=== PATIENT | female | born 1970 | race Caucasian/White ===

== ENCOUNTER → 2024-06-30 | Outpatient (CLI) | payer BC, SELFPAY ==
[2024-06-30 11:36] LABS: Collection Type, Urine Clean Catch
[2024-06-30 12:54] LABS: Bacteria,Urine 2+; Bilirubin,Urine Negative (Negative); Blood,Urine Negative (Negative); Clarity,Urine Clear (Clear/Hazy); Color,Urine Lt-Yellow (Lt Yel-Yel); Glucose, Urine Negative (Negative); Ketones,Urine Negative (Negative); Leukocyte Esterase,Urine Positive (Negative); Nitrite,Urine Positive (Negative); PH,Urine 6.5 (5.0-7.0); Protein,Urine Negative (Neg - Trace); RBC,Urine 2 /hpf (0-3); Specific Gravity,Urine 1.008 (1.001-1.035); Squamous Epithelial Cell,Urine 2 /hpf (0-5); Urobilinogen,Urine Negative mg/dL (0.0-1.0); WBC,Urine 5 /hpf (0-5)
== END | disposition home or self-care (01) ==
LOC: SLDO 11:29
PROVIDERS: PCP Family Medicine; Referring Provider Family Medicine; Visit Provider Family Medicine
DX: N30.00 Acute cystitis without hematuria (principal)
CPT/HCPCS: 81001; 87077; 87086; 87186

== ENCOUNTER → 2024-10-28 | Outpatient (CLI) | payer BC, SELFPAY ==
[2024-10-28 15:17] LABS: Collection Type, Urine Clean Catch; Squamous Epithelial Cell,Urine 0 /hpf (0-5)
[2024-10-28 16:41] LABS: Bilirubin,Urine Negative (Negative); Blood,Urine Negative (Negative); Clarity,Urine Clear (Clear/Hazy); Color,Urine Lt-Yellow (Lt Yel-Yel); Glucose, Urine Negative (Negative); Ketones,Urine Negative (Negative); Leukocyte Esterase,Urine Negative (Negative); Nitrite,Urine Negative (Negative); PH,Urine 7.5 (5.0-7.0); Protein,Urine Negative (Neg - Trace); RBC,Urine < 1 /hpf (0-3); Urobilinogen,Urine Negative mg/dL (0.0-1.0); WBC,Urine 1 /hpf (0-5)
== END | disposition home or self-care (01) ==
LOC: SLDO 14:33
PROVIDERS: PCP Family Medicine; Referring Provider Family Medicine; Visit Provider Family Medicine
DX: N30.00 Acute cystitis without hematuria (principal)
CPT/HCPCS: 81001; 87077; 87086; 87186

== ENCOUNTER 2024-12-06 13:02 | Emergency (ER) | payer BC, SELFPAY ==
[2024-12-06 13:04] VITALS: BMI 23.0
[2024-12-06 13:23] VITALS: BP 133/86; PULSE 71; RESP 18; TEMP 36.4; O2SAT 99
--- NOTE | 2024-12-06 13:31 | PD.EDLOWEX ---
Lower Extremity Injury RME/HPI General Chief Complaint: Extremity Injury, Lower Stated Complaint: FELL & HURT L) KNEE, UNABLE TO BEND, SHARP PAIN Time Seen by Provider: 12/06/24 13:25 Arrival date/time: 12/06/24 13:02 54-year-old female presents emergency department today since she had a trip and fall approximately 2 weeks ago injuring her left knee patient reports since then she has had swelling and inability to completely move the knee Limitations: no limitations Related Data Home Medications ?Medication ?Instructions ?Recorded ?Confirmed fluticasone propionate 50 1 spray intranasal QDAY 12/21/19 12/22/19 mcg/actuation nasal spray,suspension (Flonase Allergy Relief) ibuprofen 800 mg tablet 800 mg PO Q6H PRN stress headache 12/21/19 12/22/19 Held on 12/22/19. Instructions: Resume on 12/24/19. multivitamin 1 tab PO QAM 12/21/19 12/22/19 vitamin B complex (B-Complex 1 tab PO QDAY 12/21/19 12/22/19 tablet) Allergies Allergy/AdvReac Type Severity Reaction Status Date / Time nitrofurantoin (From Allergy Mild Rash Verified 12/06/24 13:06 Macrobid) Review of Systems Review of Systems Systems Reviewed: All systems reviewed, normal except as documented Constitutional Constitutional: Reports system reviewed and no additional complaints, except as documented, Denies fever(s) and Denies headache(s) Eyes Eyes: Reports system reviewed and no additional complaints, except as documented and Denies blurry vision ENT Ears, Nose, Mouth, and Throat: Reports system reviewed and no additional complaints, except as documented, Denies headache(s), Denies nasal congestion and Denies nasal discharge Cardiovascular Cardiovascular: Reports system reviewed and no additional complaints, except as documented, Denies chest pain and Denies dyspnea Respiratory Respiratory: Reports system reviewed and no additional complaints, except as documented, Denies chest congestion, Denies cough and Denies dyspnea Gastrointestinal Gastrointestinal: Reports system reviewed and no additional complaints, except as documented and Denies abdominal pain Musculoskeletal Musculoskeletal: Reports system reviewed and no additional complaints, except as documented, Reports arthralgias, Denies deformity, Reports joint swelling (Pain swelling left knee), Denies numbness, Reports stiffness, Denies tingling and Reports other (Injury left knee approximately 2 weeks ago) Integumentary/Breasts Skin/Breast: Reports system reviewed and no additional complaints, except as documented and Denies rash Neurologic Neurologic: Reports system reviewed and no additional complaints, except as documented, Reports as per HPI, Denies headache(s), Denies numbness and Denies tingling Past Medical History Past Medical History NEUROLOGIC: Positive Neurological Disorders and Migraine CARDIAC: Positive Cardiac Disorders (tachycardia); Negative Congestive Heart Failure RESPIRATORY: Negative Chronic Obstructive Pulmonary Disease (COPD) GASTROINTESTINAL: Negative Gastrointestinal Disorders or Hepatitis GENITOURINARY: Negative Genitourinary Disorders or Renal Disease REPRODUCTIVE: Negative Previous Pregnancies (hysterectomy) MUSCULOSKELETAL: Positive Musculoskeletal Disorders (left shoulder rotator repair) ENDOCRINE: Positive Endocrine Disorders and Hyperthyroidism; Negative Diabetes Mellitus Type 1 or Diabetes Mellitus Type 2 HEMATOLOGIC: Negative Blood Disorders OTHER HISTORY: Positive Chicken Pox; Negative Blood Transfusions, Blood Transfusion Reaction, Anesthesia Reactions, MRSA, VRSA, Vancomycin-Resistant Enterococci, Measles, Mumps or Cancer Surgical History SURGICAL: Positive Hysterectomy and Section Social History SMOKING STATUS: Never smoker ED Exam General Limitations: Present no limitations General appearance: Present alert and in no apparent distress Head Head exam: Present atraumatic Eye Eye exam: Present normal appearance, PERRL and EOMI ENT ENT exam: Present normal exam, normal oropharynx and mucous membranes moist Neck Neck exam: Present normal inspection, full ROM and trachea midline Chest Chest inspection: Present normal inspection and symmetric chest wall rise Respiratory Respiratory exam: Present normal lung sounds bilaterally Cardiovascular Cardiovascular exam: Present regular rate, normal rhythm and normal heart sounds Abdominal Exam Abdominal exam: Present soft and normal bowel sounds Extremities Exam Extremities exam: Present tenderness, normal capillary refill and other (Injury left knee approximately 2 weeks ago) Back Exam Back exam: Present normal inspection and full ROM Neurological Exam Neurological exam: Present alert, oriented X3 and CN II-XII intact Psychiatric Psychiatric exam: Present normal affect and normal mood Skin Skin exam: Present warm, dry, intact and normal color Course Quality Measures none Orders Category Date Time Status simeon wrap [Splint / Immobilizer] STAT Care 12/06/24 13:34 Completed Vital Signs Vital signs: Vital Signs Temperature 97.5 F 12/06/24 13:23 Pulse Rate 71 12/06/24 13:23 Respiratory Rate 18 12/06/24 13:23 Blood Pressure 133/86 H 12/06/24 13:23 Pulse Oximetry (%) 99 12/06/24 13:23 Oxygen Delivery Method Room Air 12/06/24 13:23 O2 saturation 99% on room air with normal limits Extremity Injury, Lower MDM Narrative MDM Narrative:: 54-year-old female presents emergency department today since she had a trip and fall approximately 2 weeks ago injuring her left knee patient reports since then she has had swelling and inability to completely move the knee Based on exam I suspect patient has ligamentous tear I have no ability to get MRI today I instructed the patient to return tomorrow for MRI for further evaluation Patient states she will return tomorrow for MRI At time of discharge patient is no distress Patient data External records reviewed:: [facility] previous records Clinical information provided by:: patient Social determinants that could affect healthcare access:: none Patient has the following chronic illnesses:: None How is presenting disease/condition affected by chronic disease/condition?: no chronic disease Evaluation data The following diagnostics were reviewed and interpreted by me:: radiology exam(s) Lab and/or radiology exams considered but not ordered:: Radiology obtain Interpretation Summary: Reviewed by me Medications / Prescriptions Medications or Prescriptions considered but not ordered:: Given Medication administrations:: Given Consultations Consultation(s) initiated? (list below): No Diagnosis Extremity Injury, Lower Differential Diagnosis: acute internal derangement of knee and other (Knee sprain, knee fracture) Most likely diagnosis given after review of the tests above:: Knee sprain Admission Indicated Admission indicated?: not indicated Admission Request Was there a request for admission?: No Disposition Plan Disposition Plan: Discharge Discharge Attestation Discharge Attestation: The patient and all family members were given an opportunity to ask questions and understood the discharge instructions. Discharge instructions specifically effects, indications for sooner follow up or return to the emergency department, and the expected course of current diagnosis. Patient condition: Stable Discharge Plan Plan Patient Disposition: HOME (Self Care) Discharge Disposition comment: Stable Prescriptions/Referrals Prescriptions/Med Rec: No Action multivitamin Tablet 1 tab PO QAM ibuprofen 800 mg Tablet 800 mg PO Q6H PRN (Reason: stress headache ) vitamin B complex [B-Complex] Tablet 1 tab PO QDAY fluticasone propionate [Flonase Allergy Relief] 50 mcg/actuation [place],Suspension 1 spray INTRANASAL QDAY Problem List Clinical Impression: Knee pain, left Patient/Caregiver Discharge Instructions Education Materials: ED Arthralgia Additional Instructions: Please follow up with your primary care doctor in the next 24-48hrs for any worsening symptoms return here immediately Print Language: Irish Stand Alone Forms: Ania Award Info., Patient Portal Info Letter PA/FINE ARTS TEACHER Supervising Physician PA/FINE ARTS TEACHER Supervising Physician: Dr robbins
== END 2024-12-06 13:34 | disposition home or self-care (01) ==
PROVIDERS: Emergency Provider Family Medicine; PCP Family Medicine
DX: S89.92XA Unspecified injury of left lower leg, initial encounter (principal); W01.0XXA Fall on same level from slipping, tripping and stumbling without subsequent striking against object, initial encounter
CPT/HCPCS: 99281

== ENCOUNTER 2024-12-08 17:20 | Emergency (ER) | payer BC, SELFPAY ==
[2024-12-08 17:21] VITALS: BMI 23.0
[2024-12-08 18:22] VITALS: BP 146/90; PULSE 73; RESP 18; TEMP 36.8; O2SAT 99
--- NOTE | 2024-12-08 18:31 | XR_ITS ---
Examination: Knee, left , 3 views Technique: Knee AP, lateral, oblique 3 views Date and time of exam: December 08, 2024, 1835 hours INDICATIONS: Patient fell 2 weeks ago with injury to knee, knee pain FINDINGS: No fracture or dislocation No foreign body Small knee effusion IMPRESSION: No fracture or dislocation
--- NOTE | 2024-12-08 18:35 | PD.EDLOWEX ---
Lower Extremity Injury RME/HPI General Chief Complaint: Extremity Injury, Lower Stated Complaint: L) KNEE PAIN Time Seen by Provider: 12/08/24 18:31 Arrival date/time: 12/08/24 17:20 54F with history of hypothyroidism presents to ED with 2 weeks of L knee pain after slipping while gardening. Patient's insurance still hasn't approved XR or MRI. Patient was told to return for MRI. Patient wants to to do XR today for insurance purposes. She will return tomorrow in AM. Limitations: no limitations Related Data Home Medications ?Medication ?Instructions ?Recorded ?Confirmed fluticasone propionate 50 1 spray intranasal QDAY 12/21/19 12/22/19 mcg/actuation nasal spray,suspension (Flonase Allergy Relief) ibuprofen 800 mg tablet 800 mg PO Q6H PRN stress headache 12/21/19 12/22/19 Held on 12/22/19. Instructions: Resume on 12/24/19. multivitamin 1 tab PO QAM 12/21/19 12/22/19 vitamin B complex (B-Complex 1 tab PO QDAY 12/21/19 12/22/19 tablet) Allergies Allergy/AdvReac Type Severity Reaction Status Date / Time nitrofurantoin (From Allergy Mild Rash Verified 12/08/24 17:23 Macrobid) Review of Systems Review of Systems Systems Reviewed: All systems reviewed, normal except as documented Constitutional Constitutional: Reports system reviewed and no additional complaints, except as documented, Denies fever(s) and Denies headache(s) ENT Ears, Nose, Mouth, and Throat: Denies disequilibrium and Denies headache(s) Cardiovascular Cardiovascular: Reports system reviewed and no additional complaints, except as documented, Denies chest pain and Denies dyspnea Respiratory Respiratory: Reports system reviewed and no additional complaints, except as documented, Denies cough and Denies dyspnea Gastrointestinal Gastrointestinal: Reports system reviewed and no additional complaints, except as documented, Denies abdominal pain, Denies nausea and Denies vomiting Musculoskeletal Musculoskeletal: Reports as per HPI and Reports arthralgias Neurologic Neurologic: Reports system reviewed and no additional complaints, except as documented, Denies confusion, Denies disequilibrium and Denies headache(s) Psychiatric Psychiatric: Denies confusion Past Medical History Past Medical History NEUROLOGIC: Positive Neurological Disorders and Migraine CARDIAC: Positive Cardiac Disorders (tachycardia); Negative Congestive Heart Failure RESPIRATORY: Negative Chronic Obstructive Pulmonary Disease (COPD) GASTROINTESTINAL: Negative Gastrointestinal Disorders or Hepatitis GENITOURINARY: Negative Genitourinary Disorders or Renal Disease REPRODUCTIVE: Negative Previous Pregnancies (hysterectomy) MUSCULOSKELETAL: Positive Musculoskeletal Disorders (left shoulder rotator repair) ENDOCRINE: Positive Endocrine Disorders and Hyperthyroidism; Negative Diabetes Mellitus Type 1 or Diabetes Mellitus Type 2 HEMATOLOGIC: Negative Blood Disorders OTHER HISTORY: Positive Chicken Pox; Negative Blood Transfusions, Blood Transfusion Reaction, Anesthesia Reactions, MRSA, VRSA, Vancomycin-Resistant Enterococci, Measles, Mumps or Cancer Surgical History SURGICAL: Positive Hysterectomy and Section Social History SMOKING STATUS: Never smoker ED Exam General Limitations: Present no limitations General appearance: Present alert and in no apparent distress Head Head exam: Present atraumatic Eye Eye exam: Present normal appearance, PERRL and EOMI ENT ENT exam: Present normal exam, normal oropharynx and mucous membranes moist Neck Neck exam: Present normal inspection, full ROM and trachea midline Chest Chest inspection: Present normal inspection and symmetric chest wall rise Respiratory Respiratory exam: Present normal lung sounds bilaterally Cardiovascular Cardiovascular exam: Present regular rate, normal rhythm and normal heart sounds Abdominal Exam Abdominal exam: Present soft and normal bowel sounds Expanded Lower Extremity Exam Knee exam: Absent full ROM Back Exam Back exam: Present normal inspection and full ROM Neurological Exam Neurological exam: Present alert, oriented X3 and CN II-XII intact Psychiatric Psychiatric exam: Present normal affect and normal mood Skin Skin exam: Present warm, dry, intact and normal color Course Quality Measures none Orders Category Date Time Status XR knee LT 3V Stat Exams 12/08/24 18:31 Completed Vital Signs Vital signs: Vital Signs Temperature 98.3 F 12/08/24 18:22 Pulse Rate 73 12/08/24 18:22 Respiratory Rate 18 12/08/24 18:22 Blood Pressure 146/90 H 12/08/24 18:22 Pulse Oximetry (%) 99 12/08/24 18:22 Oxygen Delivery Method Room Air 12/08/24 18:22 O2 at 99% on RA and WNLs Extremity Injury, Lower MDM Narrative MDM Narrative:: 54F with history of hypothyroidism presents to ED with 2 weeks of L knee pain after slipping while gardening. Patient's insurance still hasn't approved XR or MRI. Patient was told to return for MRI. Patient wants to to do XR today for insurance purposes. She will return tomorrow in AM. Physical exam reveals limited L knee ROM. Gait mostly intact. Patient is afebrile, calm, and alert. XR unremarkable. Counseled to return tomorrow at 9 AM. Patient data External records reviewed:: [facility] previous records Clinical information provided by:: patient Social determinants that could affect healthcare access:: none Patient has the following chronic illnesses:: hypothyroidism How is presenting disease/condition affected by chronic disease/condition?: uneffected by Evaluation data The following diagnostics were reviewed and interpreted by me:: radiology exam(s) Lab and/or radiology exams considered but not ordered:: ordered Interpretation Summary: above Medications / Prescriptions Medications or Prescriptions considered but not ordered:: not ordered Medication administrations:: n/a Consultations Consultation(s) initiated? (list below): No Diagnosis Extremity Injury, Lower Differential Diagnosis: ankle sprain and strain, acute internal derangement of knee, puncture wound of foot, fracture of toe and ankle fracture Most likely diagnosis given after review of the tests above:: acute internal derangement of knee Admission Indicated Admission indicated?: not indicated Admission Request Was there a request for admission?: No Disposition Plan Disposition Plan: Discharge Discharge Attestation Discharge Attestation: The patient and all family members were given an opportunity to ask questions and understood the discharge instructions. Discharge instructions specifically effects, indications for sooner follow up or return to the emergency department, and the expected course of current diagnosis. Patient condition: Stable Discharge Plan Plan Patient Disposition: HOME (Self Care) Discharge Disposition comment: Stable Prescriptions/Referrals Prescriptions/Med Rec: No Action multivitamin Tablet 1 tab PO QAM ibuprofen 800 mg Tablet 800 mg PO Q6H PRN (Reason: stress headache ) vitamin B complex [B-Complex] Tablet 1 tab PO QDAY fluticasone propionate [Flonase Allergy Relief] 50 mcg/actuation [place],Suspension 1 spray INTRANASAL QDAY Referrals: Peewee Yuan [Primary Care Provider] - In 1 week Problem List Clinical Impression: Acute internal derangement of knee Patient/Caregiver Discharge Instructions Education Materials: How Your Knee Works Additional Instructions: Please follow-up with PCP within 24-48 hours and return immediately if symptoms worsen. Come back tomorrow at 9 AM for MRI. Print Language: Macanese Stand Alone Forms: Work/School Release, Patient Portal Info Letter PA/WHEELCHAIR DRIVER Supervising Physician PA/WHEELCHAIR DRIVER Supervising Physician: Dr. Lopez
== END 2024-12-08 19:26 | disposition home or self-care (01) ==
PROVIDERS: Emergency Provider Emergency Medicine; PCP Family Medicine
DX: M23.92 Unspecified internal derangement of left knee (principal); E03.9 Hypothyroidism, unspecified
CPT/HCPCS: 73562; 99283

== ENCOUNTER 2024-12-09 12:41 | Emergency (ER) | payer BC, SELFPAY ==
--- NOTE | 2024-12-09 | XR_ITS ---
Exam: MRI knee without contrast, left Date and time of exam: December 09, 2024 1440 hours INDICATIONS: Patient fell 3 weeks ago with injury to knee, knee pain Technique: Multiple axial, coronal, and sagittal sections on the knee have been obtained. T2-Weighted sagittal, fat-suppressed images, TR 3,500, TE 62, T2 weighted coronal fat-saturated images, TR 3,500, TE 62 Proton density sagittal sections, TR 1800, TE 31. T-1 weighted coronal images, TR 524, TE 13.0 Findings: Medial meniscus anterior horn intact. Medial meniscus, body intact. Posterior horn medial meniscus is intact. Lateral meniscus anterior horn is intact Lateral meniscus, body is intact Posterior horn lateral meniscus is intact Anterior cruciate ligament high-grade sprain Posterior cruciate ligament appears intact. Knee effusion is large. Quadriceps and patellar tendons appear intact. There is no evidence of tendinosis. Inflammatory change or fracture of Hoffa's fat pad is not seen. Medial patellar facet demonstrates mild thinning. Lateral patellar facet cartilage demonstrates mild thinning. Trochlear cartilage demonstrates mild thinning. Marrow signal adequate. Medial collateral ligament appears intact. No meniscocapsular separation is seen. Illiotibial band and fibular collateral ligament are intact. Biceps femoris tendons appear intact. Medial femoral condylar articular cartilage demonstrates moderate thinning. Lateral femoral condylar articular cartilage demonstratesmoderate thinning. Tibial plateau cartilage demonstrates moderate thinning. Impression: High-grade sprain anterior cruciate ligament
[2024-12-09 12:41] VITALS: BMI 23.0
--- NOTE | 2024-12-09 12:52 | PD.EDEXREM ---
ED Extremity Problem RME/HPI General Chief complaint: Extremity Problem,Nontraumatic Stated complaint: LEFT KNEE PAIN Time Seen by Provider: 12/09/24 12:41 Arrival date/time: 12/09/24 12:41 54-year-old female presents emergency department today since she had a trip and fall approximately 2 weeks ago injuring her left knee patient reports since then she has had swelling and inability to completely move the knee Limitations: no limitations Related Data Home Medications ?Medication ?Instructions ?Recorded ?Confirmed fluticasone propionate 50 1 spray intranasal QDAY 12/21/19 12/22/19 mcg/actuation nasal spray,suspension (Flonase Allergy Relief) ibuprofen 800 mg tablet 800 mg PO Q6H PRN stress headache 12/21/19 12/22/19 Held on 12/22/19. Instructions: Resume on 12/24/19. multivitamin 1 tab PO QAM 12/21/19 12/22/19 vitamin B complex (B-Complex 1 tab PO QDAY 12/21/19 12/22/19 tablet) Allergies Allergy/AdvReac Type Severity Reaction Status Date / Time nitrofurantoin (From Allergy Mild Rash Verified 12/09/24 12:44 Macrobid) Review of Systems Review of Systems Systems Reviewed: All systems reviewed, normal except as documented Constitutional Constitutional: Reports system reviewed and no additional complaints, except as documented, Denies fever(s) and Denies headache(s) Eyes Eyes: Reports system reviewed and no additional complaints, except as documented and Denies blurry vision ENT Ears, Nose, Mouth, and Throat: Reports system reviewed and no additional complaints, except as documented, Denies headache(s), Denies nasal congestion and Denies nasal discharge Cardiovascular Cardiovascular: Reports system reviewed and no additional complaints, except as documented, Denies chest pain and Denies dyspnea Respiratory Respiratory: Reports system reviewed and no additional complaints, except as documented, Denies chest congestion, Denies cough and Denies dyspnea Gastrointestinal Gastrointestinal: Reports system reviewed and no additional complaints, except as documented and Denies abdominal pain Musculoskeletal Musculoskeletal: Reports system reviewed and no additional complaints, except as documented, Reports abnormal gait, Reports arthralgias, Denies deformity and Reports joint swelling Integumentary/Breasts Skin/Breast: Reports system reviewed and no additional complaints, except as documented and Denies rash Neurologic Neurologic: Reports system reviewed and no additional complaints, except as documented, Reports as per HPI, Reports abnormal gait and Denies headache(s) Past Medical History Past Medical History NEUROLOGIC: Positive Neurological Disorders and Migraine CARDIAC: Positive Cardiac Disorders (tachycardia); Negative Congestive Heart Failure RESPIRATORY: Negative Chronic Obstructive Pulmonary Disease (COPD) GASTROINTESTINAL: Negative Gastrointestinal Disorders or Hepatitis GENITOURINARY: Negative Genitourinary Disorders or Renal Disease REPRODUCTIVE: Negative Previous Pregnancies (hysterectomy) MUSCULOSKELETAL: Positive Musculoskeletal Disorders (left shoulder rotator repair) ENDOCRINE: Positive Endocrine Disorders and Hyperthyroidism; Negative Diabetes Mellitus Type 1 or Diabetes Mellitus Type 2 HEMATOLOGIC: Negative Blood Disorders OTHER HISTORY: Positive Chicken Pox; Negative Blood Transfusions, Blood Transfusion Reaction, Anesthesia Reactions, MRSA, VRSA, Vancomycin-Resistant Enterococci, Measles, Mumps or Cancer Surgical History SURGICAL: Positive Hysterectomy and Section Social History SMOKING STATUS: Never smoker ED Exam General Limitations: Present no limitations General appearance: Present alert and in no apparent distress Head Head exam: Present atraumatic, normocephalic and normal inspection Eye Eye exam: Present normal appearance, PERRL and EOMI; Absent conjunctival injection ENT ENT exam: Present normal exam, normal oropharynx and mucous membranes moist Neck Neck exam: Present normal inspection, full ROM and trachea midline Chest Chest inspection: Present normal inspection and symmetric chest wall rise Respiratory Respiratory exam: Present normal lung sounds bilaterally Cardiovascular Cardiovascular exam: Present regular rate, normal rhythm and normal heart sounds Abdominal Exam Abdominal exam: Present soft and normal bowel sounds Extremities Exam Extremities exam: Present full ROM, tenderness, normal capillary refill and joint swelling; Absent pedal edema or calf tenderness Back Exam Back exam: Present normal inspection and full ROM Neurological Exam Neurological exam: Present alert, oriented X3 and CN II-XII intact Psychiatric Psychiatric exam: Present normal affect and normal mood Skin Skin exam: Present warm, dry, intact and normal color Course Quality Measures none Orders Category Date Time Status MRI Screening NOW Care 12/09/24 12:42 Completed MR knee LT wo con Stat Exams 12/09/24 Completed Vital Signs Vital signs: Vital Signs Temperature 98.5 F 12/09/24 15:32 Pulse Rate 70 12/09/24 15:32 Respiratory Rate 16 12/09/24 15:32 Blood Pressure 145/94 H 12/09/24 15:32 Pulse Oximetry (%) 98 12/09/24 15:32 Oxygen Delivery Method Room Air 12/09/24 15:32 O2 saturation 98% on room air within the limits Extremity Problem MDM Narrative MDM Narrative:: 54-year-old female presents emergency department today since she had a trip and fall approximately 2 weeks ago injuring her left knee patient reports since then she has had swelling and inability to completely move the knee Based on exam I suspect patient has ligamentous tear X-ray completed yesterday patient reports pain persist MRI of the left knee ordered today MRI results Medial meniscus anterior horn intact. Medial meniscus, body intact. Posterior horn medial meniscus is intact. Lateral meniscus anterior horn is intact Lateral meniscus, body is intact Posterior horn lateral meniscus is intact Anterior cruciate ligament high-grade sprain Posterior cruciate ligament appears intact. Knee effusion is large. Quadriceps and patellar tendons appear intact. There is no evidence of tendinosis. Inflammatory change or fracture of Hoffa's fat pad is not seen. Medial patellar facet demonstrates mild thinning. Lateral patellar facet cartilage demonstrates mild thinning. Trochlear cartilage demonstrates mild thinning. Marrow signal adequate. Medial collateral ligament appears intact. No meniscocapsular separation is seen. Illiotibial band and fibular collateral ligament are intact. Biceps femoris tendons appear intact. Medial femoral condylar articular cartilage demonstrates moderate thinning. Lateral femoral condylar articular cartilage demonstratesmoderate thinning. Tibial plateau cartilage demonstrates moderate thinning. Impression: High-grade sprain anterior cruciate ligament Patient was discharged prior to receiving MRI results I informed her she can follow-up with me for results or follow-up with medical records. Patient states understanding I attempted to call the patient x 2 she did not answer Patient data External records reviewed:: [facility] previous records Clinical information provided by:: patient Social determinants that could affect healthcare access:: none Patient has the following chronic illnesses:: None How is presenting disease/condition affected by chronic disease/condition?: no chronic disease Evaluation data The following diagnostics were reviewed and interpreted by me:: radiology exam(s) Lab and/or radiology exams considered but not ordered:: Radiology obtain Interpretation Summary: Reviewed by me Medications / Prescriptions Medications or Prescriptions considered but not ordered:: Given Medication administrations:: Given Consultations Consultation(s) initiated? (list below): No Diagnosis Extremity Problem Differential Diagnosis: other (Knee sprain, knee fracture) Most likely diagnosis given after review of the tests above:: Knee sprain Admission Indicated Admission indicated?: not indicated Admission Request Was there a request for admission?: No Disposition Plan Disposition Plan: Discharge Discharge Attestation Discharge Attestation: The patient and all family members were given an opportunity to ask questions and understood the discharge instructions. Discharge instructions specifically effects, indications for sooner follow up or return to the emergency department, and the expected course of current diagnosis. Patient condition: Stable Discharge Plan Plan Patient Disposition: HOME (Self Care) Discharge Disposition comment: Stable Prescriptions/Referrals Prescriptions/Med Rec: No Action multivitamin Tablet 1 tab PO QAM ibuprofen 800 mg Tablet 800 mg PO Q6H PRN (Reason: stress headache ) vitamin B complex [B-Complex] Tablet 1 tab PO QDAY fluticasone propionate [Flonase Allergy Relief] 50 mcg/actuation [place],Suspension 1 spray INTRANASAL QDAY Referrals: Peewee Yuan [Primary Care Provider] - In 1 week Problem List Clinical Impression: Knee pain, left Patient/Caregiver Discharge Instructions Education Materials: ED RICE Additional Instructions: Please follow-up on MRI results for worsening symptoms return immediately Print Language: Danish Stand Alone Forms: Ania Award Info., Patient Portal Info Letter PA/BEAM HOUSE INSPECTOR Supervising Physician PA/BEAM HOUSE INSPECTOR Supervising Physician: Dr. dhaliwal
[2024-12-09 15:32] VITALS: BP 145/94; PULSE 70; RESP 16; TEMP 36.9; O2SAT 98
--- NOTE | 2024-12-09 16:30 | PRELIM_ITS ---
MRI of the left knee without intravenous contrast. December 09, 2024 1440 hours Clinical History: pain injury Comparison:No prior study is available for comparison. Findings: There is no fracture or osteonecrosis. The menisci, cruciate and collateral ligaments are intact. There is thickening and intrasubstance abnormal signal of the medial patellar retinaculum Extensor mechanism is preserved. There is small joint fluid. There is no Quezada???s cyst. Articular cartilage in the medial and lateral femorotibial and patellofemoral compartments is relatively preserved. There is soft tissue edema of the medial and posterior aspect of the knee. Impression: 1. Medial patellar retinaculum injury. 2. Small knee joint effusion. 3. Soft tissue edema of the medial and posterior aspect of the knee. Report Electronically Signed By: Bharath Riddle 12/09/2024 4:30:20 PM [EST]
== END 2024-12-09 15:32 | disposition home or self-care (01) ==
PROVIDERS: Emergency Provider Emergency Medicine; PCP Family Medicine
DX: S83.512A Sprain of anterior cruciate ligament of left knee, initial encounter (principal); W01.0XXA Fall on same level from slipping, tripping and stumbling without subsequent striking against object, initial encounter; M25.462 Effusion, left knee
CPT/HCPCS: 73721; 99284